=== PATIENT | male | born 1960 | race Caucasian/White ===

== ENCOUNTER 2018-02-15 13:43 | Emergency (ER) | payer OTHER ==
[~2018-02-15] VITALS: Ht 175.3 cm; Wt 140.0 kg
[~2018-02-15 13:43] MED LIST: ALLOPURINOL100 MG PO; ASPIRIN81 MG PO; CYCLOBENZAPR10 MG PO; GENGRAF100 MG OR; GENGRAF25 MG PO; HYDROCHLORO25 MG/TAB PO; LEVOTHYROXIN50 MCG PO; LIPITOR40 MG PO; LISINOPRIL20 MG PO; LORTAB 10 PO; LOVAZA1 GM PO; MEDDOSEPAK PO; PRAVASTATIN40 MG PO; PREDNISONE10 MG PO; TORSEMIDE20 M1 PO; ULTRAM50 M1 PO; ZPAK PO
[2018-02-15] MEDS ORDERED: AMOXICILLIN500 MG PO (15:03)
[2018-02-15] MEDS ORDERED: LORTAB 1010 MG PO (15:03)
[2018-02-15 15:24] VITALS: BP 133/83
== END 2018-02-15 15:24 | disposition home or self-care (01) | DRG 605 ==
LOC: ED 13:43
PROC: 0HQ0XZZ Repair Scalp Skin, External Approach (ICD-10-PCS; principal; 2018-02-15)
DX: S01.01XA Laceration without foreign body of scalp, initial encounter (principal); I10 Essential (primary) hypertension; E03.9 Hypothyroidism, unspecified; W01.198A Fall on same level from slipping, tripping and stumbling with subsequent striking against other object, initial encounter

== ENCOUNTER 2020-01-01 12:24 | Emergency (ER) | payer OTHER ==
[~2020-01-01 12:24] MED LIST changes: +AMOXICILLIN500 MG PO; +LORTAB 1010 MG PO
[2020-01-01 13:59] VITALS: BP 15/77
== END 2020-01-01 14:14 | disposition home or self-care (01) | DRG 605 ==
LOC: ED 12:24
PROC: 0HQHXZZ Repair Right Upper Leg Skin, External Approach (ICD-10-PCS; principal; 2020-01-01)
DX: S71.111A Laceration without foreign body, right thigh, initial encounter (principal); I10 Essential (primary) hypertension; E03.9 Hypothyroidism, unspecified; W26.8XXA Contact with other sharp object(s), not elsewhere classified, initial encounter; Y93.89 Activity, other specified; Y92.009 Unspecified place in unspecified non-institutional (private) residence as the place of occurrence of the external cause

== ENCOUNTER 2024-01-28 12:33 | Emergency (ER) | payer OTHER ==
[~2024-01-28] VITALS: Ht 175.3 cm; Wt 124.7 kg
[2024-01-28] MEDS ORDERED: ONDANSETRON HCl 4 MG/2 ML SDV IV ONE (13:05)
[2024-01-28] MEDS ORDERED: DIATRIZOATE MEGLUMINE & SODIUM 30 ML/BTL BTL PO ONE (13:05)
[2024-01-28] MEDS ORDERED: MORPHINE SULFATE 4 MG/ML VIAL IV ONE (13:05)
[2024-01-28] MEDS ORDERED: SODIUM CHLORIDE 0.9% 1,000 ML IV ONE (13:05)
[2024-01-28 13:38] LABS: BASO% 0.7 % (0-3); EOS% 0.6 % (0-8); IMMATURE GRANULOCYTES 0.1 % (0.0-5.0); MEAN CORPUSCULAR HGB 30.1 pG CALC (26.0-32.0); MONO% 4.6 % (2-13); NEUT# 8.38 thou/uL (1.82-7.42); RED BLOOD COUNT 5.82 mill/uL (4.70-6.10); RED CELL DISTRI WIDTH 13.9 % (11.5-15.5)
[2024-01-28 13:41] LABS: HEMATOCRIT 54.7 % (39.0-50.0); HEMOGLOBIN 17.5 g/dl (14.0-18.0)
[2024-01-28 13:51] LABS: ALBUMIN 4.3 g/dL (3.2-5.0); BILIRUBIN, TOTAL 2.5 mg/dL (0.2-1.3); CREATININE 1.3 mg/dL (0.7-1.3); POTASSIUM 4.9 mmol/l (3.5-5.1)
[2024-01-28 14:58] LABS: URINE BLOOD DIPSTICK Negative (NEGATIVE); URINE GLUCOSE - DIPSTICK Negative (NEGATIVE); URINE KETONE Negative (NEGATIVE); URINE LEUK ESTERASE Negative (NEGATIVE); URINE NITRITE - DIPSTICK Negative (Negative); URINE PROTEIN - DIPSTICK >=300 mg/dL (NEG-TRACE); URINE SPECIFIC GRAVITY >=1.030
[2024-01-28 15:04] LABS: URINE COLOR Yellow
[2024-01-28 15:07] LABS: URINE RBC 0-2 RBC/hpf (0-5); URINE WBC 0-2 WBC/hpf (0-5)
[2024-01-28] MEDS ORDERED: DICYCLOMINE HCL20 MG PO (16:55)
[2024-01-28 17:11] VITALS: BP 160/103
== END 2024-01-28 17:20 | disposition home or self-care (01) | DRG 395 ==
LOC: ED 12:33
PROVIDERS: Nurse Practitioner
DX: K42.9 Umbilical hernia without obstruction or gangrene (principal); I10 Essential (primary) hypertension; E03.9 Hypothyroidism, unspecified
CPT/HCPCS: Q9967